=== PATIENT | male | born 1990 | race African-American/Black ===

== ENCOUNTER 2016-12-18 09:37 | Emergency (ER) | payer OTHER ==
[~2016-12-18] VITALS: Ht 185.4 cm; Wt 170.0 kg
[~2016-12-18 09:37] MED LIST: BACTRIM,SEPT1 TABLET PO; BENTYL20 MG PO; Bactrim,Septra DS 80 PO; ENDOCET 5-3251 EACH PO; IBUPROFEN800 MG PO; NEURONTIN100 MG PO; NORCO 5/3251 TABLET PO; PEPCID20 MG PO; PERCOCET 10/1 TABLET PO; PERCOCET 5/31 TABLET PO; TRAMADOL HCL50 MG PO; ZOFRAN ODT4 MG PO; ibuprofen
[2016-12-18] MEDS ORDERED: GABAPENTIN100 MG PO (09:47)
[2016-12-18 10:23] LABS: HEMATOCRIT 50.5 % (38.0-50.0); MCH 29.8 PG (29.0-34.0); MCHC 33.7 G/DL (30.0-36.0); MCV 88.6 FL (86-99); PLATELET COUNT 145 K/uL (156-360); RBC DIS.WIDTH-CV 13.4 % (11.8-14.6); RBC DIS.WIDTH-SD 43.8 % (39-53); WHITE BLOOD COUNT 4.9 K/uL (4.1-10.2)
[2016-12-18 10:33] LABS: CHLORIDE 106 mEq/L (99-109); POTASSIUM 4.4 mEq/L (3.7-5.4); SODIUM 139 mEq/L (136-147)
[2016-12-18 10:36] LABS: GLUCOSE 86 mg/dL (70-99)
[2016-12-18 10:37] LABS: ANION GAP 10 MEQ/L (2-14)
[2016-12-18 10:38] LABS: TOTAL BILIRUBIN 0.9 mg/dL (0.0-1.0)
[2016-12-18 10:39] LABS: ALKALINE PHOSPHATASE 68 IU/L (3-129); GFR ESTIMATE (CALCULATED) > 59 mL/min/
[2016-12-18 10:40] LABS: UREA NITROGEN (BUN) 12 mg/dL (9-23)
[2016-12-18 10:43] LABS: LIPASE 14 U/L (1.0-51.0)
[2016-12-18 11:10] LABS: ADD MIUA? YES; BILIRUBIN NEGATIVE; BLOOD LARGE; COLOR YELLOW ((YELLOW)); GLUCOSE (STRIP) NEGATIVE; KETONES NEGATIVE; LEUKOCYTES NEGATIVE; NITRITE NEGATIVE; PROTEIN (STRIP) NEGATIVE; UROBILINOGEN 0.2 MG/DL (0.2-1.0)
[2016-12-18 11:13] LABS: BACTERIA RARE /HPF; EPITHELIAL CELLS NONE SEEN /HPF; MUCUS TRACE /LPF; RED BLOOD CELLS TNTC /HPF (0-5); WHITE BLOOD CELLS 0-5 /HPF (0-5)
[2016-12-18 11:18] LABS: ADD MEDTOX COMMENT Y; AMPHETAMINE NEGATIVE (500 ng/mL); BARBITURATES NEGATIVE (200 ng/mL); BENZODIAZEPINES NEGATIVE (150 ng/mL); COCAINE NEGATIVE (150 ng/mL); INTERNAL CONTROLS VALID? YES; METHADONE NEGATIVE (200 ng/mL); METHAMPHETAMINE NEGATIVE (500 ng/mL); OPIATES (MORPHINE) NEGATIVE (100 ng/mL); OXYCODONE NEGATIVE (100 ng/mL); PHENCYCLIDINE NEGATIVE (25 ng/mL); PROPOXYPHENE NEGATIVE (300 ng/mL); THC CANNABINOIDS PRESUMPTIVE POSITIVE (50 ng/mL); TRICYCLIC ANTIDEPRESSANTS NEGATIVE (300 ng/mL)
[2016-12-18] MEDS ORDERED: ZOFRAN4 MG PO (12:30)
[2016-12-18] MEDS ORDERED: TORADOL10 MG PO (12:30)
[2016-12-18 12:51] VITALS: BP 135/78
== END 2016-12-18 13:59 | disposition home or self-care (01) ==
LOC: EME → EDBD 09:37 → EME 09:37
PROVIDERS: Emergency Medicine
DX: N20.0 Calculus of kidney (principal); F17.200 Nicotine dependence, unspecified, uncomplicated; Z88.6 Allergy status to analgesic agent
CPT/HCPCS: 74177; 80053; 81003; 83690; 84999; 85027; 99281; 99285; J1630; J1885; J2405; J7030

== ENCOUNTER 2016-12-21 16:14 | Emergency (ER) | payer OTHER ==
[~2016-12-21] VITALS: Ht 188 cm; Wt 76.9 kg
[~2016-12-21 16:14] MED LIST changes: +GABAPENTIN100 MG PO; +TORADOL10 MG PO; +ZOFRAN4 MG PO
[2016-12-21 17:25] LABS: EOSINOPHIL (%) 0 % (0-5); HEMATOCRIT 43.8 % (38.0-50.0); IMMATURE GRANULOCYTE (%) 0.3 % (0.0-0.7); INSTRUMENT ABS NEUTROPHIL CT 6.5 K/uL; LYMPHOCYTE COUNT 0.9 K/uL (1.0-2.8); MCH 29.7 PG (29.0-34.0); MCHC 33.8 G/DL (30.0-36.0); MEAN PLAT.VOLUME 11.3 uM^3 (9.0-12.4); MONOCYTE (%) 4.9 % (3-12); MONOCYTE COUNT 0.4 K/uL (0-0.8); NEUTROPHIL (%) 83.4 % (45-76); NEUTROPHIL COUNT 6.5 K/uL (1.8-6.4); PLATELET COUNT 160 K/uL (156-360); RBC DIS.WIDTH-CV 13.4 % (11.8-14.6); RBC DIS.WIDTH-SD 43.2 % (39-53); RED BLOOD COUNT 4.98 M/uL (4.00-5.50)
[2016-12-21 17:26] LABS: WHITE BLOOD COUNT 7.7 K/uL (4.1-10.2)
[2016-12-21 17:30] LABS: CHLORIDE 110 mEq/L (99-109); SODIUM 142 mEq/L (136-147)
[2016-12-21 17:31] LABS: AMYLASE 55 IU/L (1-118)
[2016-12-21 17:33] LABS: GLUCOSE 101 mg/dL (70-99)
[2016-12-21 17:34] LABS: ADD MIUA? YES; BILIRUBIN NEGATIVE; BLOOD SMALL; COLOR YELLOW ((YELLOW)); GLUCOSE (STRIP) NEGATIVE; KETONES 20; LEUKOCYTES NEGATIVE; NITRITE NEGATIVE; PROTEIN (STRIP) 100; SPECIFIC GRAVITY 1.027 (1.000-1.030); UROBILINOGEN 0.2 MG/DL (0.2-1.0)
[2016-12-21 17:34] LABS: ANION GAP 9 MEQ/L (2-14)
[2016-12-21 17:36] LABS: ALKALINE PHOSPHATASE 53 IU/L (3-129); GFR ESTIMATE (CALCULATED) > 59 mL/min/
[2016-12-21 17:37] LABS: UREA NITROGEN (BUN) 18 mg/dL (9-23)
[2016-12-21 17:40] LABS: LIPASE 15 U/L (1.0-51.0)
[2016-12-21 17:43] LABS: TOTAL BILIRUBIN 1.2 mg/dL (0.0-1.0)
[2016-12-21 17:44] LABS: BACTERIA NONE SEEN /HPF; EPITHELIAL CELLS NONE SEEN /HPF; MUCUS TRACE /LPF; RED BLOOD CELLS TNTC /HPF (0-5); UCUL ADDED? NO; WHITE BLOOD CELLS 0-5 /HPF (0-5)
[2016-12-21 18:35] LABS: INFLUENZA A VIRAL ANTIGEN NEGATIVE; INFLUENZA B VIRAL ANTIGEN NEGATIVE
[2016-12-21] MEDS ORDERED: PROMETHAZINE HC25 M1 PO (20:24)
[2016-12-21 20:31] VITALS: BP 102/64
== END 2016-12-21 20:32 | disposition home or self-care (01) ==
LOC: EME 16:14
PROVIDERS: Physician Assistant
DX: R10.9 Unspecified abdominal pain (principal); R11.2 Nausea with vomiting, unspecified; R19.7 Diarrhea, unspecified; R05 Cough; J45.909 Unspecified asthma, uncomplicated; G89.29 Other chronic pain; K76.0 Fatty (change of) liver, not elsewhere classified; K70.9 Alcoholic liver disease, unspecified; F10.10 Alcohol abuse, uncomplicated; K57.30 Diverticulosis of large intestine without perforation or abscess without bleeding; F11.10 Opioid abuse, uncomplicated; F17.200 Nicotine dependence, unspecified, uncomplicated; Z87.442 Personal history of urinary calculi
CPT/HCPCS: 71020; 74177; 80053; 81003; 82150; 83690; 85025; 87502; 99281; 99285; J2405; J7030

== ENCOUNTER 2017-03-19 02:45 | Emergency (ER) | payer OTHER ==
[~2017-03-19] VITALS: Ht 185.4 cm; Wt 73.2 kg
[~2017-03-19 02:45] MED LIST changes: +PROMETHAZINE HC25 M1 PO
[2017-03-19 03:34] LABS: HEMATOCRIT 46.9 % (38.0-50.0); MCH 30.2 PG (29.0-34.0); MCHC 34.5 G/DL (30.0-36.0); MCV 87.5 FL (86-99); MEAN PLAT.VOLUME 11.8 uM^3 (9.0-12.4); PLATELET COUNT 111 K/uL (156-360); RBC DIS.WIDTH-CV 13.5 % (11.8-14.6); RBC DIS.WIDTH-SD 43.2 % (39-53); RED BLOOD COUNT 5.36 M/uL (4.00-5.50); WHITE BLOOD COUNT 3.4 K/uL (4.1-10.2)
[2017-03-19 04:07] LABS: CHLORIDE 107 mEq/L (99-109); POTASSIUM 4.1 mEq/L (3.7-5.4); SODIUM 138 mEq/L (136-147)
[2017-03-19 04:09] LABS: GLUCOSE 95 mg/dL (70-99)
[2017-03-19 04:10] LABS: ANION GAP 8 MEQ/L (2-14)
[2017-03-19 04:10] LABS: ADD MIUA? YES; BILIRUBIN NEGATIVE; BLOOD NEGATIVE; COLOR YELLOW ((YELLOW)); GLUCOSE (STRIP) NEGATIVE; KETONES 5; LEUKOCYTES NEGATIVE; NITRITE NEGATIVE; PROTEIN (STRIP) 30; SPECIFIC GRAVITY 1.021 (1.000-1.030)
[2017-03-19 04:11] LABS: TOTAL BILIRUBIN 0.6 mg/dL (0.0-1.0)
[2017-03-19 04:12] LABS: ALKALINE PHOSPHATASE 64 IU/L (3-129)
[2017-03-19 04:13] LABS: GFR ESTIMATE (CALCULATED) > 59 mL/min/
[2017-03-19 04:14] LABS: BACTERIA RARE /HPF; EPITHELIAL CELLS RARE /HPF; MUCUS TRACE /LPF; UCUL ADDED? NO; WHITE BLOOD CELLS 0-5 /HPF (0-5)
[2017-03-19 04:14] LABS: UREA NITROGEN (BUN) 12 mg/dL (9-23)
[2017-03-19 04:16] LABS: CREATINE KINASE 571 IU/L (1-294); LIPASE 13 U/L (1.0-51.0); TOTAL CK 571 IU/L (1-294)
[2017-03-19 04:23] LABS: CK-MB 1.9 ng/mL (0.0-4.9)
[2017-03-19 05:23] VITALS: BP 113/61
== END 2017-03-19 05:24 | disposition home or self-care (01) ==
LOC: EME → EDBD 02:45 → EME 02:45
PROVIDERS: Emergency Medicine
DX: E86.0 Dehydration (principal); B34.9 Viral infection, unspecified; F17.200 Nicotine dependence, unspecified, uncomplicated
CPT/HCPCS: 71020; 80053; 81003; 82550; 82553; 83605; 83690; 85027; 87651 90; 99281; 99285; J7030

== ENCOUNTER 2017-10-24 20:14 | Emergency (ER) | payer OTHER ==
[~2017-10-24] VITALS: Ht 188 cm; Wt 72.6 kg
[2017-10-24 20:52] LABS: HEMATOCRIT 51.8 % (38.0-50.0); MCH 30.6 PG (29.0-34.0); MCHC 34.7 G/DL (30.0-36.0); MCV 87.9 FL (86-99); PLATELET COUNT 233 K/uL (156-360); RBC DIS.WIDTH-CV 12.7 % (11.8-14.6); RBC DIS.WIDTH-SD 41.2 % (39-53); RED BLOOD COUNT 5.89 M/uL (4.00-5.50); WHITE BLOOD COUNT 12.4 K/uL (4.1-10.2)
[2017-10-24 21:00] LABS: ALBUMIN 4.7 g/dL (3.2-4.8)
[2017-10-24 21:01] LABS: CHLORIDE 103 mEq/L (99-109); POTASSIUM 4.3 mEq/L (3.7-5.4); SODIUM 139 mEq/L (136-147)
[2017-10-24 21:03] LABS: GLUCOSE 119 mg/dL (70-99)
[2017-10-24 21:05] LABS: TOTAL BILIRUBIN 1.2 mg/dL (0.0-1.0)
[2017-10-24 21:07] LABS: ALKALINE PHOSPHATASE 86 IU/L (3-129); CREATININE 1.1 mg/dL (0.6-1.3); GFR ESTIMATE (CALCULATED) > 59 mL/min/ (58.99-99999)
[2017-10-24 21:08] LABS: AST (GOT) 62 IU/L (2-34); UREA NITROGEN (BUN) 9 mg/dL (9-23)
[2017-10-24 21:10] LABS: ALT (GPT) 100 IU/L (3-49)
[2017-10-25 00:46] LABS: APPEARANCE CLOUDY ((CLEAR)); BILIRUBIN NEGATIVE; BLOOD LARGE; COLOR AMBER ((YELLOW)); GLUCOSE (STRIP) NEGATIVE; KETONES 20; LEUKOCYTES NEGATIVE; NITRITE NEGATIVE; PROTEIN (STRIP) 100; SPECIFIC GRAVITY 1.026 (1.000-1.030); UROBILINOGEN 0.2 MG/DL (0.2-1.0)
[2017-10-25 01:02] LABS: BACTERIA 1+ /HPF; EPITHELIAL CELLS RARE /HPF; MUCUS RARE /LPF; RED BLOOD CELLS TNTC /HPF (0-5); UCUL ADDED? YES; WHITE BLOOD CELLS 0-5 /HPF (0-5)
[2017-10-25 01:40] VITALS: BP 102/76
== END 2017-10-25 01:40 | disposition home or self-care (01) ==
LOC: EME 20:14
PROVIDERS: Physician Assistant
DX: R10.13 Epigastric pain (principal); R11.2 Nausea with vomiting, unspecified; J45.909 Unspecified asthma, uncomplicated; J30.1 Allergic rhinitis due to pollen; F17.200 Nicotine dependence, unspecified, uncomplicated; Z87.19 Personal history of other diseases of the digestive system; Z88.5 Allergy status to narcotic agent
CPT/HCPCS: 76705; 80053; 81003; 85027; 87086; 87502; J1630; J2270; J2405; J7030

== ENCOUNTER 2018-04-09 13:46 | Emergency (ER) | payer OTHER ==
[~2018-04-09] VITALS: Ht 188 cm; Wt 75.3 kg
[2018-04-09 15:00] LABS: HEMATOCRIT 52.5 % (38.0-50.0); HEMOGLOBIN 18.6 G/DL (12.5-16.6); MCH 30.4 PG (29.0-34.0); MCHC 35.4 G/DL (30.0-36.0); MCV 85.8 FL (86-99); PLATELET COUNT 223 K/uL (156-360); RBC DIS.WIDTH-CV 13.3 % (11.8-14.6); RBC DIS.WIDTH-SD 41.7 % (39-53); RED BLOOD COUNT 6.12 M/uL (4.00-5.50); WHITE BLOOD COUNT 13.5 K/uL (4.1-10.2)
[2018-04-09 15:08] LABS: ALBUMIN 4.8 g/dL (3.2-4.8); CHLORIDE 102 mEq/L (99-109); POTASSIUM 4.1 mEq/L (3.7-5.4); SODIUM 137 mEq/L (136-147)
[2018-04-09 15:11] LABS: GLUCOSE 116 mg/dL (70-99); TOTAL PROTEIN 9.7 g/dL (6.4-8.3)
[2018-04-09 15:13] LABS: TOTAL BILIRUBIN 0.9 mg/dL (0.0-1.0)
[2018-04-09 15:14] LABS: ALKALINE PHOSPHATASE 78 IU/L (3-129); CREATININE 1.1 mg/dL (0.6-1.3); GFR ESTIMATE (CALCULATED) > 59 mL/min/ (58.99-99999)
[2018-04-09 15:15] LABS: UREA NITROGEN (BUN) 15 mg/dL (9-23)
[2018-04-09 15:16] LABS: AST (GOT) 54 IU/L (2-34)
[2018-04-09 15:17] LABS: ALT (GPT) 110 IU/L (3-49)
[2018-04-09 15:18] LABS: LIPASE 12 U/L (1.0-51.0)
[2018-04-09 15:24] LABS: APPEARANCE CLEAR ((CLEAR)); BILIRUBIN NEGATIVE; BLOOD LARGE; COLOR YELLOW ((YELLOW)); GLUCOSE (STRIP) NEGATIVE; KETONES 20; LEUKOCYTES NEGATIVE; NITRITE NEGATIVE; PROTEIN (STRIP) 100; SPECIFIC GRAVITY 1.027 (1.000-1.030)
[2018-04-09 15:30] LABS: BACTERIA RARE /HPF; EPITHELIAL CELLS RARE /HPF; MUCUS TRACE /LPF; RED BLOOD CELLS TNTC /HPF (0-5); UCUL ADDED? YES
[2018-04-09 15:36] LABS: AMPHETAMINE NEGATIVE (500 ng/mL); BARBITURATES NEGATIVE (200 ng/mL); BENZODIAZEPINES NEGATIVE (150 ng/mL); BUPRENORPHINE NEGATIVE (10 ng/mL); COCAINE PRESUMPTIVE POSITIVE (150 ng/mL); METHADONE NEGATIVE (200 ng/mL); METHAMPHETAMINE NEGATIVE (500 ng/mL); OPIATES (MORPHINE) PRESUMPTIVE POSITIVE (100 ng/mL); OXYCODONE NEGATIVE (100 ng/mL); PHENCYCLIDINE NEGATIVE (25 ng/mL); PROPOXYPHENE NEGATIVE (300 ng/mL); THC CANNABINOIDS PRESUMPTIVE POSITIVE (50 ng/mL); TRICYCLIC ANTIDEPRESSANTS NEGATIVE (300 ng/mL)
[2018-04-09 19:31] VITALS: BP 121/76
== END 2018-04-09 19:32 | disposition home or self-care (01) ==
LOC: EME 13:46
PROVIDERS: Nurse Practitioner Family
DX: R11.2 Nausea with vomiting, unspecified (principal); R10.9 Unspecified abdominal pain; F19.10 Other psychoactive substance abuse, uncomplicated; J45.909 Unspecified asthma, uncomplicated; F17.200 Nicotine dependence, unspecified, uncomplicated; Z88.5 Allergy status to narcotic agent
CPT/HCPCS: 74176; 80053; 81003; 83690; 84999; 85027; 87086; 99281; 99284; J1200; J1885; J2405; J7030